=== PATIENT | male | born 1985 | race Caucasian/White ===

== ENCOUNTER → 2018-05-18 | Outpatient (CLI) | payer OTHER ==
--- NOTE | 2018-05-18 11:57 | RADIOLOGY REPORT (SQ) ---
EXAM DESCRIPTION: NM 3 PHASE BONE SCAN COMPLETED DATE/TIME: 05/18/2018 11:42 am REASON FOR STUDY: SCLEROTIC CHANGES IN FOOT COMPARISON: No available imaging studies for comparison. RADIONUCLIDE AND DOSE: 21.3 millicuries Tc99m MDP. The route of agent administration: Intravenous. ADDITIONAL DRUGS AND DOSES: None. TECHNIQUE: Following injection of the radiopharmaceutical, serial blood flow images acquired. Equil ibrium blood pool images then acquired. Routine delayed images at 3 hour acquired of the areas of cl inical concern with additional focused images as needed. AREA OF INTEREST: Left foot. LIMITATIONS: None. FINDINGS: VASCULAR FLOW IMAGES: Hyperemia left foot. BLOOD POOL IMAGES: Hyper profusion left mid and hindfoot. BONES: Increased uptake calcaneus and over dorsal aspect of the midfoot. KIDNEYS: Kidneys not imaged. OTHER: No other significant finding. IMPRESSION: Positive 3 phase bone scan in the midfoot and calcaneus consistent with fracture or infe ction. RECOMMENDATION: Correlate with plain films. COMMENT: Quality measure 147: No available prior imaging studies for comparison TECHNICAL DOCUMENTATION: JOB ID: [id number] [employer]- All Rights Reserved Reading location - IP/workstation name: [email or web address]
== END ==
LOC: RAD 08:34
PROVIDERS: ATTEND Family Medicine
DX: M21.6X2 Other acquired deformities of left foot (principal)
CPT/HCPCS: 78315; A9561; Q9969